=== PATIENT | male | born 1940 | race Caucasian/White ===

== ENCOUNTER → 2016-07-12 | Outpatient (CLI) | payer MEDICARE ==
[~2016-07-12] MED LIST: CELEBREX200 MG PO; CYCLOBENZAPRINE5 M3 PO; DULCOLAX5 MG PO; GABAPENTIN300 M1 PO; GABAPENTIN300 MG PO; HUMALOG100 U/ML SC; HYDROCODONE BIT1 T11 PO; INSULIN-HUMA100 U/ML SC; LANTUS SOLOS100 U/M1 SC; LANTUS100 U/ML SC; LASIX40 MG PO; LISINOPRIL10 MG PO; LOPRESSOR50 M1 PO; LOPRESSOR50 MG PO; Lovenox40 MG/0.4 SC; MAG-OX 400400 MG PO; MAGOX 400400 MG PO; MEDROL DOSEPAK4 MG PO; METOLAZONE5 MG PO; MITIGARE0.6 MG PO; MOM30 M1 PO; Metolazone5 MG PO; Motrin,Rufen800 MG PO; PANTOPRAZOLE40 MG PO; PENICILLIN-VK500 MG PO; PERCOCET 325 MG1 TA7 PO; POTASSIUM CHLO20 ME1 PO; POTASSIUM20 MEQ PO; PRESERVISION L1 EACH PO; PRESERVISION1 SGL PO; QUININE PO; QUININE SULFAT324 MG PO; SINGULAIR10 MG PO; THE MEDICINE S400 IU PO; TYLENOL325 M2 PO; VANCOMYCIN HCL1 GM IV; VITAMIN B12 681 TAB PO; VITAMIN B121000 MC1 PO; VITAMIN D32000 I1 PO; VITAMIN D32000 IU PO; XARE20MG PO; XARELTO15 M1 PO; ZYLOPRIM100 MG PO; ZYRTEC10 M3 PO; ZYRTEC10 MG PO; [UNRECOGNIZED DRUG - OTHER] PO; [UNRECOGNIZED DRUG - OTHER] PO
== END | disposition home or self-care (01) ==
LOC: RESCLI 02:30
DX: E11.43 Type 2 diabetes mellitus with diabetic autonomic (poly)neuropathy (principal); I48.2 Chronic atrial fibrillation; N28.9 Disorder of kidney and ureter, unspecified; E66.01 Morbid (severe) obesity due to excess calories; K21.9 Gastro-esophageal reflux disease without esophagitis; N18.9 Chronic kidney disease, unspecified; M10.9 Gout, unspecified; Z88.0 Allergy status to penicillin; R05 Cough

== ENCOUNTER → 2016-07-19 | Outpatient (CLI) | payer MEDICARE | END | disposition home or self-care (01) | LOC: RESCLI 03:04 | DX: M10.9 Gout, unspecified (principal); N28.9 Disorder of kidney and ureter, unspecified; J06.9 Acute upper respiratory infection, unspecified; I10 Essential (primary) hypertension; E11.9 Type 2 diabetes mellitus without complications; Z88.0 Allergy status to penicillin ==

== ENCOUNTER → 2016-09-06 | Outpatient (CLI) | payer MEDICARE | END | disposition home or self-care (01) | LOC: RESCLI 03:02 | DX: E11.43 Type 2 diabetes mellitus with diabetic autonomic (poly)neuropathy (principal); E66.01 Morbid (severe) obesity due to excess calories ==

== ENCOUNTER → 2017-05-03 | Outpatient (CLI) | payer MEDICARE | LOC: US 14:59 | DX: N28.1 Cyst of kidney, acquired (principal) ==

== ENCOUNTER → 2018-05-26 | Outpatient (CLI) | payer MEDICARE ==
[~2018-05-26] MED LIST changes: +ALDACTONE25 M1 PO; +ALEVE220 MG PO; +IMDUR SA60 MG PO; +K-TAB20 MEQ PO; +LANTUS SOL100 UNIT/1 SQ; +METOLAZONE2.5 MG PO; +NOVOLOG10 ML SQ; -POTASSIUM CHLO20 ME1 PO; +POTASSIUM PO; +PRAVACHOL40 MG PO; +SENNA8.6 MG PO
== END | disposition home or self-care (01) ==
LOC: RAD 15:01
DX: M51.36 Other intervertebral disc degeneration, lumbar region (principal); M47.896 Other spondylosis, lumbar region; M48.061 Spinal stenosis, lumbar region without neurogenic claudication; M25.78 Osteophyte, vertebrae

== ENCOUNTER 2018-10-05 15:32 | Emergency (ER) | payer MEDICARE ==
[~2018-10-05] VITALS: Ht 180.3 cm; Wt 154.2 kg
[2018-12-19] MEDS ORDERED: PROAIR HFA8.5 GM INH (19:13)
[2018-12-19] MEDS ORDERED: FLOVENT HFA12 GM INH (19:14)
[2018-12-22] MEDS ORDERED: DILTIAZEM 24HR120 MG PO (16:47)
== END 2018-10-05 18:05 | disposition home or self-care (01) ==
LOC: ED 15:32
DX: S41.111A Laceration without foreign body of right upper arm, initial encounter (principal); S20.211A Contusion of right front wall of thorax, initial encounter; E11.9 Type 2 diabetes mellitus without complications; I10 Essential (primary) hypertension; E66.01 Morbid (severe) obesity due to excess calories; M19.90 Unspecified osteoarthritis, unspecified site; E66.9 Obesity, unspecified; Z88.1 Allergy status to other antibiotic agents; Z79.899 Other long term (current) drug therapy; Z79.4 Long term (current) use of insulin; Z86.73 Personal history of transient ischemic attack (TIA), and cerebral infarction without residual deficits; W01.0XXA Fall on same level from slipping, tripping and stumbling without subsequent striking against object, initial encounter; Y93.89 Activity, other specified; Y92.89 Other specified places as the place of occurrence of the external cause; Y99.8 Other external cause status

== ENCOUNTER → 2018-10-10 | Outpatient (CLI) | payer MEDICARE ==
[~2018-10-10] MED LIST changes: +DILTIAZEM 24HR120 MG PO; +FLOVENT HFA12 GM INH; +PROAIR HFA8.5 GM INH
== END | disposition home or self-care (01) ==
LOC: WOUNDCARE 03:07
DX: S51.811A Laceration without foreign body of right forearm, initial encounter (principal); S51.012A Laceration without foreign body of left elbow, initial encounter; S61.511A Laceration without foreign body of right wrist, initial encounter; S51.812A Laceration without foreign body of left forearm, initial encounter; S61.512A Laceration without foreign body of left wrist, initial encounter; E11.22 Type 2 diabetes mellitus with diabetic chronic kidney disease; I12.9 Hypertensive chronic kidney disease with stage 1 through stage 4 chronic kidney disease, or unspecified chronic kidney disease; N18.9 Chronic kidney disease, unspecified; M10.9 Gout, unspecified; E66.01 Morbid (severe) obesity due to excess calories; M19.90 Unspecified osteoarthritis, unspecified site; E11.42 Type 2 diabetes mellitus with diabetic polyneuropathy; Z86.73 Personal history of transient ischemic attack (TIA), and cerebral infarction without residual deficits; W19.XXXA Unspecified fall, initial encounter; Y93.89 Activity, other specified; Y92.89 Other specified places as the place of occurrence of the external cause; Y99.8 Other external cause status

== ENCOUNTER → 2018-10-17 | Outpatient (CLI) | payer MEDICARE | END | disposition home or self-care (01) | LOC: WOUNDCARE 01:37 | DX: S51.811D Laceration without foreign body of right forearm, subsequent encounter (principal); S50.312D Abrasion of left elbow, subsequent encounter; S50.812D Abrasion of left forearm, subsequent encounter; E11.42 Type 2 diabetes mellitus with diabetic polyneuropathy; E11.22 Type 2 diabetes mellitus with diabetic chronic kidney disease; N18.9 Chronic kidney disease, unspecified; I12.9 Hypertensive chronic kidney disease with stage 1 through stage 4 chronic kidney disease, or unspecified chronic kidney disease; M19.90 Unspecified osteoarthritis, unspecified site; E66.01 Morbid (severe) obesity due to excess calories; M10.9 Gout, unspecified; Z68.42 Body mass index [BMI] 45.0-49.9, adult; Z86.73 Personal history of transient ischemic attack (TIA), and cerebral infarction without residual deficits; W19.XXXD Unspecified fall, subsequent encounter ==

== ENCOUNTER → 2019-02-08 | Outpatient (CLI) | payer MEDICARE ==
[~2019-02-08] MED LIST changes: +TRESIBA100 UNIT/1 SQ
== END | disposition home or self-care (01) ==
LOC: US 06:30
DX: R60.0 Localized edema (principal); I73.9 Peripheral vascular disease, unspecified; R20.0 Anesthesia of skin; E11.9 Type 2 diabetes mellitus without complications; I10 Essential (primary) hypertension

== ENCOUNTER 2019-02-24 15:47 | Inpatient (IN) | payer MEDICARE ==
[~2019-02-24 15:47] MED LIST changes: -TRESIBA100 UNIT/1 SQ
[2019-02-24 15:51] VITALS: BP 132/75
[2019-02-24 16:03] LABS: HEMATOCRIT 36.4 % (42.0-52.0); HEMOGLOBIN 11.2 g/dl (14.0-18.0); MEAN CELL VOLUME 95.3 fl (80.0-94.0); MEAN CORPUSCULAR HGB 29.3 pg (27.0-31.0); MEAN CORPUSCULAR HGB CONC 30.8 g/dl (33.0-37.0); MEAN PLATELET VOLUME 11.6 fl (9.6-12.3); NUCLEATED RED BLOOD CELL 0.1 10*3/uL (0.0-0.0); NUCLEATED RED BLOOD CELL 1.1 % (0.0-0.0); PLATELET COUNT AUTOMATED 367 10*3/uL (130-400); RED BLOOD COUNT 3.82 10*6/uL (4.50-5.90); WHITE BLOOD COUNT 7.6 10*3/uL (4.8-10.8)
[2019-02-24 16:27] LABS: TOTAL CELLS COUNTED 100 #CELLS
[2019-02-24 16:28] LABS: BURR CELLS FEW; PLATELET SUFFICIENCY NORMAL (NORMAL); POLYCHROMASIA SLIGHT
[2019-02-24 16:30] LABS: ACT PARTIAL THROMBO TIME 30.3 SECONDS (20.0-32.1); INTERNATIONAL NORM RATIO 1.1 (2.0-3.5)
[2019-02-24 16:35] LABS: ALBUMIN 2.5 gm/dl (3.1-4.5); ALKALINE PHOSPHATASE 321 U/L (45-117); BUN 21 mg/dl (7-24); CHLORIDE 101 mmol/L (98-107); CREATININE 1.52 mg/dL (0.70-1.30); POTASSIUM 3.6 mmol/L (3.5-5.1); SGOT/AST 107 IU/L (3-35); SGPT/ALT 58 U/L (12-78); SODIUM 139 mmol/L (136-145); TOTAL PROTEIN 6.3 gm/dL (6.4-8.2)
[2019-02-24 16:38] LABS: TROPONIN I < 0.015 ng/ml (<0.045)
[2019-02-24 18:05] LABS: BILIRUBIN NEGATIVE (NEGATIVE); BLOOD NEGATIVE (NEGATIVE); CLARITY CLEAR (CLEAR); COLOR YELLOW (YELLOW); GLUCOSE NEGATIVE (NEGATIVE); KETONE NEGATIVE (NEGATIVE); LEUKO ESTERASE NEGATIVE (NEGATIVE); NITRITE NEGATIVE (NEGATIVE); SPECIFIC GRAVITY 1.015 (1.005-1.030)
[2019-02-24 18:15] LABS: HYALINE CAST 21-30; WBC 0-2 wbc/hpf (0-5)
[2019-02-24 20:09] VITALS: BP 126/82
[2019-02-24 20:25] VITALS: BP 126/84
[2019-02-24] MEDS ORDERED: ALEVE220 MG PO (23:09)
[2019-02-24] MEDS ORDERED: TRESIBA100 UNIT/1 SQ (23:10)
[2019-02-25 06:42] LABS: BASO % 0.3 % (0.0-1.0); EOS # 0.2 10*3/uL (0.0-0.4); EOS % 2.1 % (1.0-4.0); HEMATOCRIT 34.4 % (42.0-52.0); HEMOGLOBIN 10.5 g/dl (14.0-18.0); LYMPH # 1.6 10*3/uL (1.3-4.4); LYMPH % 18.1 % (27.0-41.0); MEAN CELL VOLUME 94.2 fl (80.0-94.0); MEAN CORPUSCULAR HGB 28.8 pg (27.0-31.0); MEAN CORPUSCULAR HGB CONC 30.5 g/dl (33.0-37.0); MEAN PLATELET VOLUME 11.2 fl (9.6-12.3); MONO # 0.8 10*3/uL (0.1-1.0); MONO % 8.4 % (3.0-9.0); NEUT # 6.4 10*3/uL (2.3-7.9); NEUT % 70.7 % (47.0-73.0); NUCLEATED RED BLOOD CELL 0.1 10*3/uL (0.0-0.0); NUCLEATED RED BLOOD CELL 0.7 % (0.0-0.0); PLATELET COUNT AUTOMATED 301 10*3/uL (130-400); RED BLOOD COUNT 3.65 10*6/uL (4.50-5.90); RED CELL DISTRI WIDTH 19.9 % (0-14.5)
[2019-02-25 08:00] VITALS: BP 152/85
[2019-02-25 12:00] VITALS: BP 117/64
[2019-02-25 16:00] VITALS: BP 126/67
[2019-02-25 20:00] VITALS: BP 119/61
[2019-02-26] VITALS: BP 123/64
[2019-02-26 08:00] VITALS: BP 108/72
[2019-02-26 12:00] VITALS: BP 122/66
[2019-02-26 20:00] VITALS: BP 106/59
[2019-02-27] VITALS (7 sets, daily range): BP systolic 112–128; BP diastolic 57–89
[2019-02-28] VITALS: BP 120/84
[2019-02-28 06:24] LABS: BASO % 0.3 % (0.0-1.0); EOS # 0.2 10*3/uL (0.0-0.4); EOS % 2.6 % (1.0-4.0); LYMPH # 1.3 10*3/uL (1.3-4.4); LYMPH % 13.6 % (27.0-41.0); MEAN CELL VOLUME 93.3 fl (80.0-94.0); MEAN CORPUSCULAR HGB 29.3 pg (27.0-31.0); MEAN CORPUSCULAR HGB CONC 31.4 g/dl (33.0-37.0); MEAN PLATELET VOLUME 11.2 fl (9.6-12.3); MONO # 1.2 10*3/uL (0.1-1.0); NEUT # 6.5 10*3/uL (2.3-7.9); NEUT % 70.2 % (47.0-73.0); PLATELET COUNT AUTOMATED 277 10*3/uL (130-400); RED BLOOD COUNT 3.75 10*6/uL (4.50-5.90); RED CELL DISTRI WIDTH 19.4 % (0-14.5); WHITE BLOOD COUNT 9.3 10*3/uL (4.8-10.8)
[2019-02-28 06:26] LABS: BUN 13 mg/dl (7-24); CHLORIDE 101 mmol/L (98-107); CREATININE 1.15 mg/dL (0.70-1.30); POTASSIUM 2.6 mmol/L (3.5-5.1); SODIUM 139 mmol/L (136-145)
[2019-02-28 08:00] VITALS: BP 112/68
[2019-02-28 12:00] VITALS: BP 124/68
[2019-02-28] MEDS ORDERED: DILTIAZEM 24HR120 MG PO (15:09)
[2019-02-28 16:00] VITALS: BP 119/53
[2019-02-28 20:00] VITALS: BP 123/59
[2019-03-01] VITALS: BP 113/60
[2019-03-01 06:54] LABS: BASO % 0.4 % (0.0-1.0); EOS # 0.2 10*3/uL (0.0-0.4); EOS % 2.1 % (1.0-4.0); HEMATOCRIT 34.7 % (42.0-52.0); HEMOGLOBIN 10.7 g/dl (14.0-18.0); LYMPH # 1.3 10*3/uL (1.3-4.4); LYMPH % 15.4 % (27.0-41.0); MEAN CELL VOLUME 94.8 fl (80.0-94.0); MEAN CORPUSCULAR HGB 29.2 pg (27.0-31.0); MEAN CORPUSCULAR HGB CONC 30.8 g/dl (33.0-37.0); MEAN PLATELET VOLUME 10.8 fl (9.6-12.3); MONO # 1.2 10*3/uL (0.1-1.0); MONO % 14.5 % (3.0-9.0); NEUT # 5.5 10*3/uL (2.3-7.9); PLATELET COUNT AUTOMATED 256 10*3/uL (130-400); RED BLOOD COUNT 3.66 10*6/uL (4.50-5.90); RED CELL DISTRI WIDTH 19.2 % (0-14.5); WHITE BLOOD COUNT 8.2 10*3/uL (4.8-10.8)
[2019-03-01 07:08] LABS: BUN 12 mg/dl (7-24); CHLORIDE 99 mmol/L (98-107); CREATININE 1.38 mg/dL (0.70-1.30); POTASSIUM 2.7 mmol/L (3.5-5.1); SODIUM 136 mmol/L (136-145)
[2019-03-01 08:00] VITALS: BP 110/66
[2019-03-01 12:00] VITALS: BP 110/77
[2019-03-01 16:00] VITALS: BP 119/75
[2019-03-01 17:24] LABS: CREATININE 1.48 mg/dL (0.70-1.30)
[2019-03-01 17:28] LABS: POTASSIUM 3.8 mmol/L (3.5-5.1)
[2019-03-01 20:00] VITALS: BP 113/46
[2019-03-02] VITALS: BP 112/57
[2019-03-02 08:00] VITALS: BP 106/50
[2019-03-02 12:00] VITALS: BP 112/63
[2019-03-02 16:00] VITALS: BP 116/75
[2019-03-02 20:00] VITALS: BP 103/63
[2019-03-03] VITALS: BP 108/46; BP 112/58
[2019-03-03 08:00] VITALS: BP 104/65
[2019-03-03 12:00] VITALS: BP 101/40
[2019-03-03 16:00] VITALS: BP 106/64
[2019-03-03 20:00] VITALS: BP 124/68
[2019-03-04] VITALS: BP 106/54
[2019-03-04 08:00] VITALS: BP 121/72
[2019-03-04 12:00] VITALS: BP 107/86
[2019-03-04 16:00] VITALS: BP 110/74
[2019-03-04 20:00] VITALS: BP 111/62
[2019-03-05] VITALS: BP 120/61
[2019-03-05 12:00] VITALS: BP 124/98
== END 2019-03-05 14:00 | disposition other institution (70) | DRG 391 ==
LOC: ED 15:47 → EDHOLD 18:44 → 4E 18:44
PROVIDERS: Emergency Medicine; Physician Assistant; ADMIT Internal Medicine
PROC: 0DJ08ZZ Inspection of Upper Intestinal Tract, Via Natural or Artificial Opening Endoscopic (ICD-10-PCS; principal; 2019-02-27)
DX: K29.00 Acute gastritis without bleeding (principal); N17.0 Acute kidney failure with tubular necrosis; J96.10 Chronic respiratory failure, unspecified whether with hypoxia or hypercapnia; Z68.42 Body mass index [BMI] 45.0-49.9, adult; E44.0 Moderate protein-calorie malnutrition; E66.01 Morbid (severe) obesity due to excess calories; R62.7 Adult failure to thrive; E87.6 Hypokalemia; Z66 Do not resuscitate; Z51.5 Encounter for palliative care; G89.29 Other chronic pain; M54.5 Low back pain; K20.9 Esophagitis, unspecified; K31.7 Polyp of stomach and duodenum; M10.9 Gout, unspecified; R13.10 Dysphagia, unspecified; M19.90 Unspecified osteoarthritis, unspecified site; E78.5 Hyperlipidemia, unspecified; I25.10 Atherosclerotic heart disease of native coronary artery without angina pectoris; M48.00 Spinal stenosis, site unspecified; E11.51 Type 2 diabetes mellitus with diabetic peripheral angiopathy without gangrene; I95.9 Hypotension, unspecified; J44.9 Chronic obstructive pulmonary disease, unspecified; I48.91 Unspecified atrial fibrillation; E11.42 Type 2 diabetes mellitus with diabetic polyneuropathy; I12.9 Hypertensive chronic kidney disease with stage 1 through stage 4 chronic kidney disease, or unspecified chronic kidney disease; N18.3 Chronic kidney disease, stage 3 (moderate); E11.22 Type 2 diabetes mellitus with diabetic chronic kidney disease; Z79.4 Long term (current) use of insulin; Z88.1 Allergy status to other antibiotic agents; Z90.49 Acquired absence of other specified parts of digestive tract; Z82.49 Family history of ischemic heart disease and other diseases of the circulatory system; Z83.79 Family history of other diseases of the digestive system; Z82.3 Family history of stroke; Z83.3 Family history of diabetes mellitus